=== PATIENT | male | born 1955 | race Caucasian/White ===

== ENCOUNTER 2017-03-30 11:55 | Emergency (ER) | payer OTHER ==
[2017-03-30] MEDS ORDERED: Acetaminophen/oxyCODONE 325-5 MG Tab PO ONE (12:43)
--- NOTE | 2017-03-30 12:46 | EDM.PDOC ---
ED HPI GENERAL MEDICAL PROBLEM - General Chief Complaint: Lower Extremity Injury/Pain Stated Complaint: LEFT LEG PAIN Time Seen by Provider: 03/30/17 12:40 Source of Information: Reports: Patient History Limitations: Reports: No Limitations - History of Present Illness INITIAL COMMENTS - FREE TEXT/NARRATIVE: Denis is a 61-year-old otherwise healthy male who presents to the emergency department today with ongoing left knee pain that has been progressive in nature over the last few weeks. Patient denies any known trauma or injury, he does report lifting several hay keyana in November that may have strained his knee. Patient is using ibuprofen for pain with minimal relief, he reports pain with ambulation, pain with laying on left side. Patient denies any history of blood clots, he does endorse swelling to left knee but denies any pain distally or proximally to left leg. Patient denies any fever or other complaints. Onset: Gradual Duration: Week(s): left knee Pain Score (Numeric/FACES): 7 - Related Data Allergies Allergy/AdvReac Type Severity Reaction Status Date / Time No Known Allergies Allergy Verified 03/30/17 12:44 Home Meds: Home Meds NK [No Known Home Meds] 03/30/17 [History] Review of Systems - Review of Systems Review Of Systems: ROS reveals no pertinent complaints other than HPI. ED EXAM, GENERAL - Physical Exam Exam: See Below Exam Limited By: No Limitations General Appearance: Alert, WD/WN, No Apparent Distress Respiratory/Chest: No Respiratory Distress, Lungs Clear Cardiovascular: Regular Rate, Rhythm Extremities: Normal Range of Motion, Normal Capillary Refill, Other (patient has swelling noted to right lateral portion of left knee along MCL, patella is in good position, there is no evidence of abscess formation or bursitis. There is no erythema or warmth to indicate a cellulitis. There is no peripheral edema. ) Neurological: Alert, Oriented, CN II-XII Intact Psychiatric: Normal Affect, Normal Mood, Anxious Skin Exam: Warm, Dry, Intact Lymphatic: No Adenopathy Course - Vital Signs Last Recorded V/S: Last Vital Signs Temp 36.9 C 03/30/17 13:18 Pulse 74 03/30/17 13:18 Resp 16 03/30/17 13:18 BP 157/110 H 03/30/17 13:18 Pulse Ox 94 L 03/30/17 13:18 Denis is a 61-year-old male who presents to the emergency department today with ongoing left knee pain. Patient denies any injury or trauma. Patient on exam has tenderness along region of MCL, likely this is playing a role. X-ray was obtained to rule out any acute osseous abnormality and is negative. Ultrasound was obtained to rule out DVT although low likelihood of this, ultrasound was negative. Patient was given a dose of Percocet here in the emergency room with vast improvement in his pain. Patient lives in [place], I encouraged him to follow up with his primary care early this next week, he should be scheduled for an outpatient MRI for further diagnosis of the source of his pain. Patient was placed in a knee immobilizer, I will send him home with additional Percocet for severe pain which she can alternate with ibuprofen. Patient's narcotic use was evaluated on the [place] prescription monitoring program, he has had no opioid prescription so far this year. Narcotic 50 was discussed in detail, patient was agreeable and discharged in stable condition with his friends driving. - Orders/Labs/Meds Orders: Active Orders 24 hr Category Date Time Status Knee 3V Lt [CR] Stat Exams 03/30/17 12:43 Taken VL Duplex Lwr Ext Veins Ltd Lt [US] Stat Exams 03/30/17 12:43 Ordered Meds: Medications Discontinued Medications Generic Name Dose Route Start Last Admin Trade Name Mayra PRN Reason Stop Dose Admin Oxycodone/Acetaminophen 2 tab 03/30/17 12:43 03/30/17 12:52 Percocet 325-5 Mg PO 03/30/17 12:44 2 tab ONETIME ONE Administration Departure - Departure Time of Disposition: 14:45 Disposition: Home, Self-Care 01 Condition: Good Clinical Impression: Left medial knee pain Clinical Impression: (Ruled Out): Left lateral knee pain - Discharge Information Instructions: Knee Pain, Knee Immobilizer, [id number] Forms: ED Department Discharge Additional Instructions: Denis, he can take ibuprofen, 600 mg every 6 hours for pain, he can alternate this with Percocet for severe pain. Wear the knee immobilizer as much as possible, continue to elevate you leg and apply ice to knee. Follow-up with her primary care clinic on Saturday to discuss an MRI. Please also keep track of your blood pressure as based on today's values you likely need to be restarted on your blood pressure medication. - My Orders Last 24 Hours: My Active Orders 03/30/17 12:43 Knee 3V Lt [CR] Stat VL Duplex Lwr Ext Veins Ltd Lt [US] Stat - Assessment/Plan Last 24 Hours: My Active Orders 03/30/17 12:43 Knee 3V Lt [CR] Stat VL Duplex Lwr Ext Veins Ltd Lt [US] Stat
[2017-03-30 14:17] VITALS: BP 170/83
--- NOTE | 2017-04-01 08:34 | CR ---
Knee 3V Lt INDICATION: pain, swelling COMPARISON: None FINDINGS: 3 views. No fracture, dislocation, or other acute bony abnormality. There is a joint e ffusion. IMPRESSION: No acute bony abnormality. Joint effusion.
--- NOTE | 2017-04-01 10:34 | US ---
VL Duplex Lwr Ext Veins Ltd Lt INDICATION: leg pain, swelling TECHNIQUE: The deep venous system of left leg imaged, including the common femoral, deep femoral, steel perficial femoral, vertebral, and where visualized, calf veins. Imaging included duplex, compressi on, and augmentation. COMPARISON: None FINDINGS: There is no evidence of deep venous thrombosis. Other incidental findings: None. IMPRESSION: No evidence of deep venous thrombosis.
== END 2017-03-30 14:32 | disposition home or self-care (01) ==
LOC: JP.ED 11:55
DX: M25.562 Pain in left knee (principal)
CPT/HCPCS: 73562; 93971; 99284; A9270